=== PATIENT | male | born 1955 | race Caucasian/White ===

== ENCOUNTER 2018-01-25 05:57 | Day surgery (SDC) | payer OTHER, SELFPAY ==
[2018-01-25 06:18] VITALS: BP 133/91; PULSE 59; RESP 18; TEMP 36.5; O2SAT 100; BMI 29.7
--- NOTE | 2018-01-25 07:30 | RAD_ITS ---
PROCEDURE: Left C4-C7 radiofrequency ablation. DATE OF EXAMINATION: January 25, 2018. INDICATION: Male, 62 years old. Neck pain. FLUOROSCOPY TIME (if supplied): (0:22) minutes/seconds. 13 intraoperative coned down views were obtained. Intraoperative imaging provided for left C4-C7 radiofrequency ablation. RAD/Cerv Spine 4 or 5 Views IMPRESSION: Intraoperative imaging provided for left C4-C7 radiofrequency ablation. Electronically Signed: Devonte Crow MD at 9:05 EST Tel [phone], Service support ,
[2018-01-25] MEDS: MethylPREDNISolone Acetate 80 MG/ML Vial (07:42)
[2018-01-25] MEDS: Bupivacaine 0.5% PF 10 ML VIAL (07:42)
[2018-01-25 08:06] VITALS: BP 116/77; BP 133/91; PULSE 70; RESP 16; TEMP 36.3; O2SAT 94
[2018-01-25 08:10] VITALS: BP 113/77; BP 133/91; PULSE 63; RESP 16; O2SAT 94
[2018-01-25 08:15] VITALS: BP 114/78; BP 133/91; PULSE 61; RESP 16; O2SAT 93
[2018-01-25 08:20] VITALS: BP 117/78; BP 133/91; PULSE 64; RESP 14; TEMP 36.5; O2SAT 93
--- NOTE | 2018-01-25 08:47 | OP.PCM_ITS ---
Problem List (1) Spondylosis of cervical region without myelopathy or radiculopathy Status: Chronic (2) Degeneration of cervical disc without myelopathy Status: Chronic (3) Arthropathy of cervical facet joint Status: Chronic Report of Operation Date of Procedure: 01/25/18 Pre-Operative Diagnosis: Cervical spondylosis, cervical degenerative disc disease, cervical facet arthropathy Post-Operative Diagnosis: Cervical spondylosis, cervical degenerative disc disease, cervical facet arthropathy Surgery/Procedure Performed:: Left-sided cervical radiofrequency ablation of the medial branch at C4, C5, C6, C7 Description of Surgical Findings:: PROCEDURE: Left-sided cervical radiofrequency ablation of the medial branch at C4, C5, C6, C7 PREOPERATIVE DIAGNOSES: Cervical spondylosis, cervical degenerative disc disease, and cervical facet arthropathy POSTOPERATIVE DIAGNOSES: Cervical spondylosis, cervical degenerative disc disease, and cervical facet arthropathy ANESTHESIA: MAC COMPLICATIONS: None BLOOD LOSS: Minimal PROCEDURE IN DETAIL: History and physical today was reviewed. Risks and benefits of the procedure were explained. The patient understood, agreed to our procedure, and informed consent was obtained. IV inserted per routine protocol. The patient was taken to the operating room, placed in a prone position with a pillow positioned underneath the chest. The neck area was prepped and draped in a sterile fashion using iodine x3. Under fluoroscopy guidance, on AP view, C4 through C7 vertebral bodies were visualized. Skin and subcutaneous tissues were anesthetized with approximately 10 mL of 1% lidocaine using a 25- gauge regular needle. Under direct visualization with fluoroscopy at approximately 15-degree angle, starting on the left C4, ending on the left C7, passing through the C5-C6 using a 20-gauge 10 cm with a 10 mm curved active tip radiofrequency ablation needle, the needle was passed through the skin. The tip of the needle was maneuvered and directed towards the apophyseal junction of each corresponding vertebra. Once the tip of the needle was at the vicinity of the medial branch and in contact with the bone, the needle was redirected more lateral towards the medial branch. Once in contact with the medial branch, the stylet of each needle was then removed. After negative aspiration of blood with CSF and confirmation of AP as well as oblique view, the radiofrequency ablation probe was then inserted at each level. Impedance was then recorded at C4 to be 291, at C5 241, at C6 258, at C7 271 ohms. Motor-evoked potential was then initiated to 1.5 volt without any motor response at each corresponding level or the left arm, The radiofrequency ablation probe was then removed intact and a total of 4 mL preservative-free 1% lidocaine was injected in divided doses between those 4 levels after negative aspiration of blood with CSF. The radiofrequency ablation probe was then reinserted after confirmation of AP, oblique as well as lateral view. Radiofrequency ablation was then initiated to approximately 80 degrees Celsius for 60 seconds at each level. Once concluded, the probe was then removed intact and a total of 3 mL of preservative-free 0.25% Marcaine with 40 mg Depo-Medrol was injected in divided doses between those 4 levels. The needles were then removed intact. The patient experienced no signs or symptoms of intrathecal, intravascular injection. The patient experienced no paraesthesia. The procedure was completed without any a pparent difficulty, any complication. The patient appeared to tolerate well. Sensory as well as motor exam was unchanged from prior to procedure. ASSESSMENT AND PLAN: This is a 62-year-old Male with cervical spondylosis, cervical degenerative disc disease, and cervical facet arthropathy, status post left-sided radiofrequency ablation of the medial branch C4 through C7. The patient will continue his current medications. The patient will follow up in approximately 2 weeks fo reevaluation.
[2018-01-25 08:49] VITALS: BP 133/91
== END 2018-01-25 08:50 | disposition home or self-care (01) ==
LOC: SDC 05:57 → AC 05:59
PROVIDERS: Family Provider Family Medicine; PCP Family Medicine; Referring Provider Anesthesiology Pain Medicine; Visit Provider Anesthesiology Pain Medicine
PROC: (CPT 64633; principal; 2018-01-25 07:15)
DX: M47.812 Spondylosis without myelopathy or radiculopathy, cervical region (principal); M50.320 Other cervical disc degeneration, mid-cervical region, unspecified level; E78.00 Pure hypercholesterolemia, unspecified; Z79.899 Other long term (current) drug therapy
CPT/HCPCS: 64633; 64634 ×3; 72050; 76000; J7120; J3490